=== PATIENT | female | born 2000 | race Caucasian/White ===

== ENCOUNTER 2023-02-10 13:28 | Emergency (ER) | payer SELFPAY ==
[2023-02-10] MEDS ORDERED: Ketorolac Tromethamine 30 MG/ML VIAL ONE (15:01)
[2023-02-10] MEDS ORDERED: Cyclobenzaprine 10 MG TAB ONE (15:01)
== END 2023-02-10 15:20 | disposition home or self-care (01) ==
LOC: CSHERS 13:28
DX: S09.90XA Unspecified injury of head, initial encounter (principal); S16.1XXA Strain of muscle, fascia and tendon at neck level, initial encounter; V89.2XXA Person injured in unspecified motor-vehicle accident, traffic, initial encounter
CPT/HCPCS: 70450; 72125; 96372; J1885